=== PATIENT | male | born 1990 | race Asian ===

== ENCOUNTER 2020-02-15 18:01 | Emergency (ER) | payer OTHER | END 2020-02-15 18:27 | disposition left against medical advice (07) | LOC: ED 18:01 | DX: Z53.21 Procedure and treatment not carried out due to patient leaving prior to being seen by health care provider (principal) ==

== ENCOUNTER 2020-02-15 18:43 | Emergency (ER) | payer OTHER ==
[~2020-02-15] VITALS: Ht 175.3 cm; Wt 65.3 kg
[2020-02-15 19:05] VITALS: Ht 175.3 cm; Wt 65.3 kg
[2020-02-15 19:50] VITALS: BP 136/92
== END 2020-02-15 19:50 | disposition home or self-care (01) ==
LOC: ED 18:43
DX: S60.511A Abrasion of right hand, initial encounter (principal); W54.0XXA Bitten by dog, initial encounter; Y93.89 Activity, other specified; Y92.89 Other specified places as the place of occurrence of the external cause; Y99.8 Other external cause status